=== PATIENT | male | born 1970 | race Caucasian/White ===

== ENCOUNTER 2018-11-03 09:08 | Day surgery (SDC) | payer OTHER ==
[2018-11-03] MEDS ORDERED: LIDOCAINE 4% SOLUTION 50 ML BTL (09:47)
[2018-11-03] MEDS ORDERED: MIDAZOLAM 1 MG/ML 2 ML INJ ×2 (10:48)
[2018-11-03] MEDS ORDERED: FENTAnyl 50 MCG/ML VIAL (10:48)
== END 2018-11-03 12:47 | disposition home or self-care (01) ==
LOC: GIL 09:08
DX: K29.50 Unspecified chronic gastritis without bleeding (principal); K20.0 Eosinophilic esophagitis
CPT/HCPCS: 43239; 88305; 88312; 88313